=== PATIENT | female | born 1985 | race African-American/Black ===

== ENCOUNTER 2018-09-08 20:40 | Emergency (ER) | payer MEDICAID, OTHER ==
[~2018-09-08] VITALS: Ht 160 cm; Wt 96.6 kg
[~2018-09-08 20:40] MED LIST: ABILIFY; ADVAIR; DEPAKOTE; LEXAPRO; OXYM30SP
[2018-09-08 21:12] VITALS: BP 136/82
== END 2018-09-08 23:45 | disposition home or self-care (01) ==
LOC: ER 20:40
DX: Z04.1 Encounter for examination and observation following transport accident (principal); R03.0 Elevated blood-pressure reading, without diagnosis of hypertension; R62.50 Unspecified lack of expected normal physiological development in childhood
CPT/HCPCS: 99281